=== PATIENT | male | born 1965 | race Caucasian/White ===

== ENCOUNTER 2019-11-12 16:03 | Outpatient (REF) | payer SELFPAY ==
[2019-11-12 21:19] LABS: Estmated Average Glucose 114; Hemoglobin A1C 5.6 % (4.0-6.0)
[2019-11-12 21:33] LABS: Chol HDL Ratio 5.25 mg/dL (1.0-5.00); Cholesterol 252 mg/dL (0-200); Glucose 95 mg/dL (65-115); HDL Cholesterol 48 mg/dL (60-100); LDL Cholesterol Calculated 173 mg/dL (50-129); Triglycerides 154 mg/dL (0-150)
== END 2019-11-12 16:04 | disposition home or self-care (01) ==
LOC: LAB 16:03
PROVIDERS: Family Provider Registered Nurse; Visit Provider Dermatology
DX: Z13.9 Encounter for screening, unspecified (principal)
CPT/HCPCS: 80061; 82947; 83036

== ENCOUNTER → 2020-07-28 10:16 | Outpatient (BNVA) | payer BC, SELFPAY | PROVIDERS: Family Provider Registered Nurse; Visit Provider Registered Nurse | DX: E78.5 Hyperlipidemia, unspecified (principal) | CPT/HCPCS: 80061 ==

== ENCOUNTER 2021-02-15 07:45 | Outpatient (CLI) | payer OTHER, SELFPAY ==
--- NOTE | 2021-02-15 08:00 | MR_ITS ---
WS: [id number] MRI LEFT SHOULDER HISTORY: S46.912A - Strain of unspecified muscle, fascia and tendon. COMPARISON: 01/04/2021 TECHNIQUE: Multiplanar sequences of the shoulder joint are submitted. Mild to moderate AC joint osteoarthritic changes. Increased T2 signal along the AC ligament. Hypertro phic osteophytes from the distal clavicle and adjacent acromion with mild encroachment and deformity of the anterior supraspinatus muscle and tendon. No significant amount of subacromial or subdeltoid f luid. Small osteophyte measuring 4 mm from the distal undersurface of the acromion. No os acromion. B iceps tendon is in normal position with a small amount of increased fluid within the tendon sheath. No rotator cuff muscle atrophy or edema. No definite rotator cuff tears are identified. There is a ve ry small amount of increased signal at the insertion site of the supraspinatus but this is probably r elated to the cortex and cartilage and not the rotator cuff. There is a small amount of fluid in the subcutaneous subscapularis recess with tiny loose bodies in the fluid. Small amount of edema at the r otator cuff interval. Subchondral cystic changes in the glenoid. Moderate narrowing of the glenohumeral joint. Abnormal sig nal throughout the labrum. Most significant signal abnormalities are the anterior and posterior labru m. MR/MR shoulder LT wo con* [id number] IMPRESSION: 1. Moderate to severe glenohumeral joint osteoarthritic changes with subchondr al cystic changes and loss of cartilage involving the glenoid. 2. Abnormal signal consistent with tears in the anterior and posterior labrum. Additional intrasubstance degeneration in the superior labrum. 3. No rotator cuff tear. 4. Mild to moderate AC joint osteoarthritic changes with mild encroachment upo n the supraspinatus tendon and muscle.
== END 2021-02-15 07:46 | disposition home or self-care (01) ==
PROVIDERS: Visit Provider Orthopaedic Surgery
DX: S46.912A Strain of unspecified muscle, fascia and tendon at shoulder and upper arm level, left arm, initial encounter (principal); X58.XXXA Exposure to other specified factors, initial encounter
CPT/HCPCS: 73221

== ENCOUNTER → 2024-09-01 08:42 | Outpatient (BNVA) | payer OTHER, SELFPAY | PROVIDERS: PCP Registered Nurse; Visit Provider Registered Nurse | DX: Z00.00 Encounter for general adult medical examination without abnormal findings (principal); Z13.6 Encounter for screening for cardiovascular disorders; E78.5 Hyperlipidemia, unspecified; Z12.5 Encounter for screening for malignant neoplasm of prostate; Z71.3 Dietary counseling and surveillance; Z71.82 Exercise counseling | CPT/HCPCS: 80053; 80061; 85025; G0103 ==